=== PATIENT | female | born 1985 | race African-American/Black ===

== ENCOUNTER 2017-04-10 16:17 | Emergency (ER) | payer OTHER | END 2017-04-10 17:05 | disposition home or self-care (01) | LOC: ER 16:17 | DX: J06.9 Acute upper respiratory infection, unspecified (principal); E11.9 Type 2 diabetes mellitus without complications | CPT/HCPCS: 99283 ==

== ENCOUNTER 2017-06-07 15:27 | Emergency (ER) | payer OTHER ==
[2017-06-07 15:50] LABS: URINE HCG POC HCG NEGATIVE (Negative)
[2017-06-07 15:55] LABS: POC GLUCOSE 446 mg/dL (70-99)
[2017-06-07 16:18] LABS: BILIRUBIN,URINE NEGATIVE (NEG); CLARITY,URINE CLEAR; GLUCOSE,URINE >=1000 mg/dL (NEG); NITRITE,URINE NEGATIVE (NEG); PROTEIN,URINE NEGATIVE (NEG-TRACE); UROBILINOGEN,URINE 0.2 mg/dL (0.2 mg/dL)
[2017-06-07 16:25] LABS: BACTERIA,URINE 0 /HPF (0-FEW); COLOR,URINE STRAW; RBC,URINE 0 /HPF (0-2); SQUAMOUS EPITHELIAL CELL,UR MOD /LPF; YEAST,URINE PRESENT /HPF
[2017-06-07 17:17] LABS: AGAP ISTAT 17 mmol/L (6-14); BUN ISTAT 11 mg/dL (8-26); CHLORIDE ISTAT 99 mmol/L (98-110); CREATININE ISTAT 0.9 mg/dL (0.5-1.4); GLUCOSE ISTAT 413 mg/dL (70-99); HEMATOCRIT ISTAT 45 % (36-40); HEMOGLOBIN ISTAT 15.3 g/dL (12-15); ION CA ISTAT 1.16 mmol/L (1.13-1.32); POTASSIUM ISTAT 4.9 mmol/L (3.5-5.0); SODIUM ISTAT 138 mmol/L (135-145); TOT CO2 ISTAT 28 mmol/L (23-32)
== END 2017-06-07 17:30 | disposition home or self-care (01) ==
LOC: ER 15:27
DX: E11.9 Type 2 diabetes mellitus without complications (principal); E66.9 Obesity, unspecified; Z68.41 Body mass index [BMI] 40.0-44.9, adult; Z79.84 Long term (current) use of oral hypoglycemic drugs
CPT/HCPCS: 36415; 80047; 81001; 81025; 82962; 85014; 85018; 99284

== ENCOUNTER 2017-07-04 18:07 | Observation (INO) | payer OTHER ==
[2017-07-04 18:24] LABS: URINE HCG POC HCG NEGATIVE (Negative)
[2017-07-04] MEDS: IV NORMAL SALINE 1000ML BAG 1,000 ML IV ×5 (18:25→22:20)
[2017-07-04 18:26] LABS: POC GLUCOSE 569 mg/dL (70-99)
[2017-07-04 18:30] LABS: BILIRUBIN,URINE NEGATIVE (NEG); CLARITY,URINE CLEAR; COLOR,URINE YELLOW; GLUCOSE,URINE >=1000 mg/dL (NEG); NITRITE,URINE NEGATIVE (NEG); PROTEIN,URINE NEGATIVE (NEG-TRACE); UROBILINOGEN,URINE 0.2 mg/dL (0.2 mg/dL)
[2017-07-04 18:34] LABS: ADD MAN DIFF? NO
[2017-07-04 18:36] LABS: BASO # 0.1 x10^3/uL (0.0-0.2); BASO % 1 % (0-3); EOS # 0.1 x10^3/uL (0.0-0.7); EOS % 1 % (0-3); HEMATOCRIT 43.5 % (36.0-47.0); HEMOGLOBIN 14.3 g/dL (12.0-15.5); LYMPH # 2.7 x10^3/uL (1.0-4.8); LYMPH % 48 % (24-48); MEAN CORPUSCULAR HEMOGLOBIN 25 pg (25-35); MEAN CORPUSCULAR HGB CONC 33 g/dL (31-37); MEAN CORPUSCULAR VOLUME 77 fL (79-100); MONO # 0.5 x10^3/uL (0.0-1.1); MONO % 8 % (0-9); NEUT # 2.4 x10^3uL (1.8-7.7); NEUT % 42 % (31-73); PLATELET COUNT 303 x10^3/uL (140-400); RED BLOOD COUNT 5.68 x10^6/uL (3.50-5.40); RED CELL DISTRIBUTION WIDTH 14.8 % (11.5-14.5); WHITE BLOOD COUNT 5.6 x10^3/uL (4.0-11.0)
[2017-07-04 18:37] LABS: BACTERIA,URINE 0 /HPF (0-FEW); RBC,URINE 0 /HPF (0-2); SQUAMOUS EPITHELIAL CELL,UR FEW /LPF
[2017-07-04 18:38] LABS: YEAST,URINE PRESENT /HPF
[2017-07-04 18:52] LABS: ALBUMIN 3.9 g/dL (3.4-5.0); ALBUMIN/GLOBULIN RATIO 1.1 (1.0-1.7); ALK PHOS 186 U/L (46-116); ALT (SGPT) 37 U/L (14-59); ANION GAP 10 (6-14); AST (SGOT) 18 U/L (15-37); BLOOD UREA NITROGEN 15 mg/dL (7-20); BUN/CREATININE RATIO 13 (6-20); CALCIUM 9.7 mg/dL (8.5-10.1); CARBON DIOXIDE 26 mmol/L (21-32); CHLORIDE 96 mmol/L (98-107); CREATININE 1.2 mg/dL (0.6-1.0); GFR 64.3; POTASSIUM 4.5 mmol/L (3.5-5.1); SODIUM 132 mmol/L (136-145); TOTAL BILIRUBIN 0.4 mg/dL (0.2-1.0); TOTAL PROTEIN 7.5 g/dL (6.4-8.2)
[2017-07-04 18:55] LABS: GLUCOSE 576 mg/dL (70-99)
[2017-07-04] MEDS: INSULIN REGULAR 100 UNIT/ML 3ML VIAL. IV (19:25)
[2017-07-04 19:59] LABS: POC GLUCOSE 354 mg/dL (70-99)
[2017-07-04] MEDS ORDERED: ACETAMINOPHEN 325 MG TABLET. PO (20:30)
[2017-07-04] MEDS ORDERED: ONDANSETRON PF 4 MG/2 ML VIAL. IV (20:30)
[2017-07-04] MEDS ORDERED: DEXTROSE 50% 25 GM / 50ML DISP.SYRIN. IV (20:30)
[2017-07-04] MEDS: FLUCONAZOLE 100 MG TABLET. PO (21:40)
[2017-07-04] MEDS: amLODIPine BESYLATE 5 MG TABLET PO (21:41)
[2017-07-05 04:13] LABS: ADD MAN DIFF? NO
[2017-07-05 04:16] LABS: BASO % 1 % (0-3); EOS # 0.1 x10^3/uL (0.0-0.7); EOS % 2 % (0-3); HEMATOCRIT 38.6 % (36.0-47.0); HEMOGLOBIN 12.7 g/dL (12.0-15.5); LYMPH # 2.1 x10^3/uL (1.0-4.8); LYMPH % 47 % (24-48); MEAN CORPUSCULAR HEMOGLOBIN 25 pg (25-35); MEAN CORPUSCULAR HGB CONC 33 g/dL (31-37); MEAN CORPUSCULAR VOLUME 77 fL (79-100); MONO # 0.4 x10^3/uL (0.0-1.1); MONO % 10 % (0-9); NEUT # 1.8 x10^3uL (1.8-7.7); NEUT % 41 % (31-73); PLATELET COUNT 244 x10^3/uL (140-400); RED BLOOD COUNT 5.04 x10^6/uL (3.50-5.40); RED CELL DISTRIBUTION WIDTH 15.1 % (11.5-14.5); WHITE BLOOD COUNT 4.4 x10^3/uL (4.0-11.0)
[2017-07-05 05:11] LABS: ALBUMIN 2.9 g/dL (3.4-5.0); ALBUMIN/GLOBULIN RATIO 0.9 (1.0-1.7); ALK PHOS 109 U/L (46-116); ALT (SGPT) 29 U/L (14-59); ANION GAP 9 (6-14); AST (SGOT) 15 U/L (15-37); BLOOD UREA NITROGEN 11 mg/dL (7-20); BUN/CREATININE RATIO 12 (6-20); CALCIUM 8.2 mg/dL (8.5-10.1); CARBON DIOXIDE 25 mmol/L (21-32); CHLORIDE 105 mmol/L (98-107); CREATININE 0.9 mg/dL (0.6-1.0); GFR 89.6; GLUCOSE 372 mg/dL (70-99); POTASSIUM 4.1 mmol/L (3.5-5.1); SODIUM 139 mmol/L (136-145); TOTAL BILIRUBIN 0.6 mg/dL (0.2-1.0); TOTAL PROTEIN 6.1 g/dL (6.4-8.2)
[2017-07-05 07:49] LABS: POC GLUCOSE 354 mg/dL (70-99)
[2017-07-05] MEDS: INSULIN LISPRO 300 UNITS/3 ML INSULN.PEN. SQ ×3 (08:42→17:43)
[2017-07-05 11:16] LABS: POC GLUCOSE 346 mg/dL (70-99)
[2017-07-05] MEDS: ENOXAPARIN 40 MG/0.4 ML SYRINGE. SQ ×2 (12:48→23:37)
[2017-07-05] MEDS: amLODIPine BESYLATE 5 MG TABLET PO (12:48)
[2017-07-05] MEDS: metFORMIN XR 500 MG TAB.ER.24H PO (17:34)
[2017-07-05 17:53] LABS: POC GLUCOSE 272 mg/dL (70-99)
[2017-07-05] MEDS: INSULIN GLARGINE 300 UNITS/3 ML INSULN.PEN. SQ (20:38)
[2017-07-05 20:52] LABS: POC GLUCOSE 333 mg/dL (70-99)
[2017-07-06 02:17] LABS: HEMOGLOBIN A1C 12.6 % (4.8-5.6)
[2017-07-06 06:38] LABS: ADD MAN DIFF? NO
[2017-07-06 06:48] LABS: BASO % 1 % (0-3); EOS # 0.1 x10^3/uL (0.0-0.7); EOS % 1 % (0-3); HEMATOCRIT 39.8 % (36.0-47.0); HEMOGLOBIN 13.1 g/dL (12.0-15.5); LYMPH # 2.1 x10^3/uL (1.0-4.8); LYMPH % 49 % (24-48); MEAN CORPUSCULAR HEMOGLOBIN 25 pg (25-35); MEAN CORPUSCULAR HGB CONC 33 g/dL (31-37); MEAN CORPUSCULAR VOLUME 77 fL (79-100); MONO # 0.4 x10^3/uL (0.0-1.1); MONO % 10 % (0-9); NEUT # 1.6 x10^3uL (1.8-7.7); NEUT % 38 % (31-73); PLATELET COUNT 258 x10^3/uL (140-400); RED CELL DISTRIBUTION WIDTH 14.9 % (11.5-14.5); WHITE BLOOD COUNT 4.3 x10^3/uL (4.0-11.0)
[2017-07-06 07:08] LABS: ALBUMIN 2.9 g/dL (3.4-5.0); ALBUMIN/GLOBULIN RATIO 0.9 (1.0-1.7); ALK PHOS 86 U/L (46-116); ALT (SGPT) 37 U/L (14-59); ANION GAP 9 (6-14); AST (SGOT) 22 U/L (15-37); BLOOD UREA NITROGEN 11 mg/dL (7-20); BUN/CREATININE RATIO 14 (6-20); CALCIUM 8.1 mg/dL (8.5-10.1); CARBON DIOXIDE 25 mmol/L (21-32); CHLORIDE 104 mmol/L (98-107); CREATININE 0.8 mg/dL (0.6-1.0); GFR 102.6; GLUCOSE 277 mg/dL (70-99); POTASSIUM 3.9 mmol/L (3.5-5.1); SODIUM 138 mmol/L (136-145); TOTAL BILIRUBIN 0.6 mg/dL (0.2-1.0); TOTAL PROTEIN 6.3 g/dL (6.4-8.2)
[2017-07-06 07:37] LABS: POC GLUCOSE 255 mg/dL (70-99)
[2017-07-06 08:04] LABS: POC GLUCOSE 299 mg/dL (70-99)
[2017-07-06] MEDS: amLODIPine BESYLATE 5 MG TABLET PO (08:11)
[2017-07-06] MEDS: INSULIN LISPRO 300 UNITS/3 ML INSULN.PEN. SQ (08:13)
== END 2017-07-06 12:43 | disposition home or self-care (01) ==
LOC: ER 18:07 → 5 NORTH 20:16
DX: E11.65 Type 2 diabetes mellitus with hyperglycemia (principal); E87.0 Hyperosmolality and hypernatremia; I10 Essential (primary) hypertension; Z83.3 Family history of diabetes mellitus
CPT/HCPCS: 36415; 80053; 81001; 81025; 82962; 83036; 85025; 96361; 96372; 96374; 99285-25; G0378; G0379; J1650; J1815; J7030

== ENCOUNTER 2017-12-08 16:10 | Emergency (ER) | payer OTHER ==
[~2017-12-08] VITALS: Ht 165.1 cm; Wt 117.9 kg
[~2017-12-08 16:10] MED LIST: CYCL10TA2 PO; HYDR5SUS PO; METF500T16 PO; NAPR500T8 PO
[2017-12-08 16:17] VITALS: BP 149/102
[2017-12-08] MEDS ORDERED: ACET-704 PO (16:34)
[2017-12-08] MEDS ORDERED: NAPR500T8 PO (16:34)
[2017-12-08] MEDS ORDERED: PENI500T PO (16:34)
--- NOTE | 2017-12-08 16:34 | PHYS DOC ---
Past Medical History Past Medical History: Diabetes-Type II Additional Past Medical Histor: obesity, abscess Past Surgical History: No Surgical History Alcohol Use: Occasionally Drug Use: None Adult General Chief Complaint Chief Complaint: DENTAL PROBLEM HPI HPI Patient is a 32 year old female with history of diabetes type 2 who presents today complaining of right upper and lower gum dental pain that has been going on for one week. Patient denies any fever or trismus. Review of Systems Review of Systems Constitutional: Denies fever or chills [] HENT: Reports right upper gum dental pain. Denies nasal congestion or sore throat [] Musculoskeletal: Denies back pain or joint pain [] Integument: Denies rash or skin lesions [] Neurologic: Denies headache, focal weakness or sensory changes [] All other systems were reviewed and found to be within normal limits, except as documented in this note. Allergies Allergies Allergies Coded Allergies Type Severity Reaction Last Updated Verified No Known Drug Allergies 09/25/14 No Physical Exam Physical Exam Constitutional: Well developed, well nourished, no acute distress, non-toxic appearance. [] HENT: Normocephalic, atraumatic, bilateral external ears normal, oropharynx moist, no oral exudates, nose normal. [] Scattered dental carriers. No dental abscess. No gum erythema Skin: Warm, dry, no erythema, no rash. [] Back: No tenderness, no CVA tenderness. [] Extremities: No tenderness, no cyanosis, no clubbing, ROM intact, no edema. [] Neurologic: Alert and oriented X 3, normal motor function, normal sensory function, no focal deficits noted. [] Psychologic: Affect normal, judgement normal, mood normal. [] Current Patient Data Vital Signs Vital Signs Date Time Temp Pulse Resp B/P (MAP) Pulse Ox O2 Delivery O2 Flow Rate FiO2 12/08/17 16:17 98.0 74 18 149/102 (118) 96 Room Air 98.0 EKG EKG [] Radiology/Procedures Radiology/Procedures [] Course & Med Decision Making Course & Med Decision Making Pertinent Labs and Imaging studies reviewed. (See chart for details) Patient has dental caries. Discharged with penicillin for 10 days. Follow-up with the dentist as soon as possible. Dragon Disclaimer Dragon Disclaimer This electronic medical record was generated, in whole or in part, using a voice recognition dictation system. Departure Departure Impression: Primary Impression: Dentalgia Additional Impression: Dental caries Disposition: 01 HOME, SELF-CARE Condition: STABLE Referrals: NO PCP (PCP) Follow-up with a dentist as soon as possible Patient Instructions: Dental Caries Additional Instructions: You were seen for dental pain. We put you on antibiotics, ensure you complete them. Follow-up with the dentist as soon as possible. Scripts Acetaminophen With Codeine (TYLENOL WITH CODEINE #3 TABLET) 1 Each Tablet 1 TAB PO PRN Q6HRS PRN for PAIN, #20 TAB Prov: DIRK FERNANDEZ APRN 12/08/17 Naproxen (NAPROXEN) 500 Mg Tablet.dr 1 TAB PO BID, #60 TAB 0 Refills Prov: DIRK FERNANDEZ APRN 12/08/17 Penicillin V Potassium (PENICILLIN V POTASSIUM) 500 Mg Tablet 1 TAB PO BID, #20 TAB Prov: DIRK FERNANDEZ APRN 12/08/17 Problem Qualifiers DIRK FERNANDEZ APRN Dec 08, 2017 16:34
== END 2017-12-08 16:36 | disposition home or self-care (01) ==
LOC: ER 16:10
DX: K08.89 Other specified disorders of teeth and supporting structures (principal); K02.9 Dental caries, unspecified; E11.9 Type 2 diabetes mellitus without complications; E66.9 Obesity, unspecified; Z68.41 Body mass index [BMI] 40.0-44.9, adult
CPT/HCPCS: 99283

== ENCOUNTER 2018-05-05 12:59 | Emergency (ER) | payer OTHER ==
[~2018-05-05] VITALS: Ht 165.1 cm; Wt 117.9 kg
[~2018-05-05 12:59] MED LIST changes: +ACET-704 PO; +PENI500T PO
[2018-05-05 13:17] LABS: BILIRUBIN,URINE NEGATIVE (NEG); CLARITY,URINE CLEAR; COLOR,URINE YELLOW; NITRITE,URINE NEGATIVE (NEG); PROTEIN,URINE NEGATIVE (NEG-TRACE); UROBILINOGEN,URINE 0.2 mg/dL (0.2 mg/dL)
--- NOTE | 2018-05-05 13:23 | PHYS DOC ---
Past Medical History Past Medical History: Diabetes-Type II Additional Past Medical Histor: obesity, abscess (DIRK FERNANDEZ APRN) Past Surgical History: No Surgical History (DIRK FERNANDEZ APRN) Alcohol Use: Occasionally Drug Use: None (DIRK FERNANDEZ APRN) Adult General Chief Complaint Chief Complaint: PAIN ON URINATION [facility] HPI Patient is a 32 year old female with history of diabetes type 2 who presents to the ED today complaining of urgency frequency dysuria for 3 days. Patient denies any fever, abdominal pain, nausea or vomiting. She states she has history of diabetes type 2 and has been out of her medications for a while. She states she got samples from her doctor's office 2 weeks ago and started retaking most of her insulin as well as oral medicines. (DIRK FERNANDEZ APRN) Review of Systems Review of Systems Constitutional: Denies fever or chills [] Eyes: Denies change in visual acuity, redness, or eye pain [] HENT: Denies nasal congestion or sore throat [] Respiratory: Denies cough or shortness of breath [] Cardiovascular: No additional information not addressed in HPI [] GI: Denies abdominal pain, nausea, vomiting, bloody stools or diarrhea [] : Reports urgency, frequency, dysuria, denies hematuria [] Musculoskeletal: Denies back pain or joint pain [] Integument: Denies rash or skin lesions [] Neurologic: Denies headache, focal weakness or sensory changes [] All other systems were reviewed and found to be within normal limits, except as documented in this note. (DIRK FERNANDEZ APRN) Current Medications Current Medications Current Medications Medications (Trade) Dose Ordered Sig/Genevieve Start Time Stop Time Status Last Admin Dose Admin Insulin Human Regular (HumuLIN R VIAL) 10 unit 1X ONCE 05/05/18 15:45 05/05/18 15:50 DC 05/05/18 16:54 10 UNIT Sodium Chloride 1,000 ml @ 1,000 mls/hr 1X ONCE 05/05/18 15:45 05/05/18 16:44 DC 05/05/18 16:49 1,000 MLS/HR (MOISÉS DELA CRUZ MD) Allergies Allergies Allergies Coded Allergies Type Severity Reaction Last Updated Verified No Known Drug Allergies 09/25/14 No (MOISÉS DELA CRUZ MD) Physical Exam Physical Exam Constitutional: Well developed, well nourished, no acute distress, non-toxic appearance. [] HENT: Normocephalic, atraumatic, bilateral external ears normal, oropharynx moist, no oral exudates, nose normal. [] Eyes: PERRLA, EOMI, conjunctiva normal, no discharge. [] Neck: Normal range of motion, no tenderness, supple, no stridor. [] Cardiovascular:Heart rate regular rhythm, no murmur [] Lungs & Thorax: Bilateral breath sounds clear to auscultation [] Abdomen: Bowel sounds normal, soft, no tenderness, no masses, no pulsatile masses. [] Skin: Warm, dry, no erythema, no rash. [] Back: No tenderness, no CVA tenderness. [] Extremities: No tenderness, no cyanosis, no clubbing, ROM intact, no edema. [] Neurologic: Alert and oriented X 3, normal motor function, normal sensory function, no focal deficits noted. [] Psychologic: Affect normal, judgement normal, mood normal. [] (DIRK FERNANDEZ APRN) Current Patient Data Vital Signs Vital Signs Date Time Temp Pulse Resp B/P (MAP) Pulse Ox O2 Delivery O2 Flow Rate FiO2 05/05/18 19:32 75 16 152/88 (109) 98 Room Air 05/05/18 13:00 97.7 97.7 (MOISÉS DELA CRUZ MD) Lab Values Laboratory Tests Test 05/05/18 13:05 05/05/18 13:09 05/05/18 14:20 05/05/18 16:17 Urine Collection Type Unknown Urine Color Yellow Urine Clarity Clear Urine pH 5.0 Urine Specific [place] >=1.030 Urine Protein Negative mg/dL (NEG-TRACE) Urine Glucose (UA) >=1000 mg/dL (NEG) Urine Ketones (Stick) 15 mg/dL (NEG) Urine Blood Negative (NEG) Urine Nitrite Negative (NEG) Urine Bilirubin Negative (NEG) Urine Urobilinogen Dipstick 0.2 mg/dL (0.2 mg/dL) Urine Leukocyte Esterase Negative (NEG) Urine RBC 0 /HPF (0-2) Urine WBC 5-10 /HPF (0-4) Urine Squamous Epithelial Cells Few /LPF Urine Bacteria 0 /HPF (0-FEW) POC Urine HCG, Qualitative Hcg negative (Negative) White Blood Count 5.5 x10^3/uL (4.0-11.0) Red Blood Count 5.51 x10^6/uL (3.50-5.40) H Hemoglobin 13.9 g/dL (12.0-15.5) Hematocrit 43.2 % (36.0-47.0) Mean Corpuscular Volume 78 fL (79-100) L Mean Corpuscular Hemoglobin 25 pg (25-35) Mean Corpuscular Hemoglobin Concent 32 g/dL (31-37) Red Cell Distribution Width 14.1 % (11.5-14.5) Platelet Count 239 x10^3/uL (140-400) Neutrophils (%) (Auto) 62 % (31-73) Lymphocytes (%) (Auto) 28 % (24-48) Monocytes (%) (Auto) 9 % (0-9) Eosinophils (%) (Auto) 1 % (0-3) Basophils (%) (Auto) 1 % (0-3) Neutrophils # (Auto) 3.4 x10^3uL (1.8-7.7) Lymphocytes # (Auto) 1.5 x10^3/uL (1.0-4.8) Monocytes # (Auto) 0.5 x10^3/uL (0.0-1.1) Eosinophils # (Auto) 0.0 x10^3/uL (0.0-0.7) Basophils # (Auto) 0.0 x10^3/uL (0.0-0.2) Sodium Level 133 mmol/L (136-145) L Potassium Level 4.5 mmol/L (3.5-5.1) Chloride Level 96 mmol/L (98-107) L Carbon Dioxide Level 22 mmol/L (21-32) Anion Gap 15 (6-14) H Blood Urea Nitrogen 17 mg/dL (7-20) Creatinine 1.0 mg/dL (0.6-1.0) Estimated GFR (Cockcroft-Gault) 78.8 BUN/Creatinine Ratio 17 (6-20) Glucose Level 599 mg/dL (70-99) *H Calcium Level 8.9 mg/dL (8.5-10.1) Total Bilirubin 0.4 mg/dL (0.2-1.0) Aspartate Amino Transferase (AST) 11 U/L (15-37) L Alanine Aminotransferase (ALT) 27 U/L (14-59) Alkaline Phosphatase 172 U/L (46-116) H Total Protein 7.4 g/dL (6.4-8.2) Albumin 3.6 g/dL (3.4-5.0) Albumin/Globulin Ratio 0.9 (1.0-1.7) L Lipase 105 U/L (73-393) Glucose (Fingerstick) 352 mg/dL (70-99) H Test 05/05/18 18:10 Sodium Level 140 mmol/L (136-145) Potassium Level 3.9 mmol/L (3.5-5.1) Chloride Level 105 mmol/L (98-107) Carbon Dioxide Level 27 mmol/L (21-32) Anion Gap 8 (6-14) Blood Urea Nitrogen 13 mg/dL (7-20) Creatinine 0.9 mg/dL (0.6-1.0) Estimated GFR (Cockcroft-Gault) 89.0 Glucose Level 280 mg/dL (70-99) H Calcium Level 7.9 mg/dL (8.5-10.1) L Laboratory Tests 05/05/18 14:20 Laboratory Tests 05/05/18 14:20 05/05/18 18:10 Microbiology 05/05/18 Urine Culture - Final, Complete 05/05/18 Urine Culture Result 1 (HUNG) - Final, Complete (MOISÉS DELA CRUZ MD) EKG EKG [] (DIRK FERNANDEZ APRN) Radiology/Procedures Radiology/Procedures [] (DIRK FERNANDEZ APRN) Course & Med Decision Making Course & Med Decision Making Pertinent Labs and Imaging studies reviewed. (See chart for details) This is a 32-year-old female patient presenting to the ED today with the UTI symptoms. Negative urine hCG. Urine analysis is negative for infection, glucose over 1000. Fingerstick was done in the ED which read high. CBC with with no acute findings, CMP with glucose of 559, sodium 133, anion gap 15. urine with 15 ketones. Patient was given 3 L of IV fluid, 10 units of insulin. BMP with glucose of 280, anion gap is normal. Sodium is normal. Patient was discharged to home. She states she has samples of insulin for home use and does not need anymore. She was encouraged to make sure she is using her insulin. (DIRK FERNANDEZ APRN) Course & Med Decision Making Staff Physician Addendum: I was working in the ER during the course of this patient's visit. I was available for consultation as needed, but I was not directly involved in the care of this patient. (MOISÉS DELA CRUZ MD) Dragon Disclaimer Dragon Disclaimer This electronic medical record was generated, in whole or in part, using a voice recognition dictation system. (DIRK FERNANDEZ APRN) Departure Departure Impression: Primary Impression: Hyperglycemia due to type 2 diabetes mellitus Disposition: HOME, SELF-CARE Condition: STABLE Referrals: NO PCP (PCP) Nikky NATARAJAN MD Follow-up next week Patient Instructions: Hyperglycemia, [id number] Additional Instructions: You were evaluated in the emergency and noted to be hyperglycemic. Ensure you are using your insulin. Follow-up with your doctor on Monday next week. Problem Qualifiers Primary Impression: Hyperglycemia due to type 2 diabetes mellitus Diabetes mellitus halfway insulin use: with circus roustabout use Qualified Codes: E11.65 - Type 2 diabetes mellitus with hyperglycemia; Z79.4 - compounder ( current) use of insulin DIRK FERNANDEZ APRN May 05, 2018 13:23 MOISÉS DELA CRUZ MD May 09, 2018 05:49
[2018-05-05 13:46] LABS: BACTERIA,URINE 0 /HPF (0-FEW); RBC,URINE 0 /HPF (0-2); SQUAMOUS EPITHELIAL CELL,UR FEW /LPF
[2018-05-05] MEDS ORDERED: IV NORMAL SALINE 1000ML BAG 1,000 ML IV ONE ×3 (14:15→15:45)
[2018-05-05 14:34] LABS: BASO % 1 % (0-3); EOS % 1 % (0-3); HEMATOCRIT 43.2 % (36.0-47.0); HEMOGLOBIN 13.9 g/dL (12.0-15.5); LYMPH # 1.5 x10^3/uL (1.0-4.8); LYMPH % 28 % (24-48); MEAN CORPUSCULAR HEMOGLOBIN 25 pg (25-35); MEAN CORPUSCULAR HGB CONC 32 g/dL (31-37); MEAN CORPUSCULAR VOLUME 78 fL (79-100); MONO # 0.5 x10^3/uL (0.0-1.1); MONO % 9 % (0-9); NEUT # 3.4 x10^3uL (1.8-7.7); NEUT % 62 % (31-73); PLATELET COUNT 239 x10^3/uL (140-400); RED BLOOD COUNT 5.51 x10^6/uL (3.50-5.40); RED CELL DISTRIBUTION WIDTH 14.1 % (11.5-14.5); WHITE BLOOD COUNT 5.5 x10^3/uL (4.0-11.0)
[2018-05-05 14:48] LABS: ALBUMIN 3.6 g/dL (3.4-5.0); ALBUMIN/GLOBULIN RATIO 0.9 (1.0-1.7); CALCIUM 8.9 mg/dL (8.5-10.1); GFR 78.8; POTASSIUM 4.5 mmol/L (3.5-5.1); TOTAL BILIRUBIN 0.4 mg/dL (0.2-1.0); TOTAL PROTEIN 7.4 g/dL (6.4-8.2)
[2018-05-05] MEDS ORDERED: INSULIN REGULAR 100 UNIT/ML 3ML VIAL. IV ONE (15:45)
[2018-05-05 18:29] LABS: CALCIUM 7.9 mg/dL (8.5-10.1); CREATININE 0.9 mg/dL (0.6-1.0); POTASSIUM 3.9 mmol/L (3.5-5.1)
[2018-05-05 19:32] VITALS: BP 152/88
== END 2018-05-05 19:29 | disposition home or self-care (01) ==
LOC: ER 12:59
DX: E11.65 Type 2 diabetes mellitus with hyperglycemia (principal); E66.2 Morbid (severe) obesity with alveolar hypoventilation; Z68.41 Body mass index [BMI] 40.0-44.9, adult
CPT/HCPCS: 36415; 80048; 80053; 81001; 81025; 82962; 83690; 85025; 87086; 96361; 96374; 99283; J1815; J7030

== ENCOUNTER 2018-06-12 12:03 | Emergency (ER) | payer OTHER ==
[~2018-06-12] VITALS: Ht 165.1 cm; Wt 117.9 kg
[2018-06-12 12:18] VITALS: BP 140/83
[2018-06-12] MEDS ORDERED: SULF1TAB24 PO (13:08)
--- NOTE | 2018-06-12 13:08 | PHYS DOC ---
Past Medical History Past Medical History: Diabetes-Type II Additional Past Medical Histor: obesity, abscess (MONIQUE CERVANTES APRN) Past Surgical History: No Surgical History (MONIQUE CERVANTES APRN) Alcohol Use: Occasionally Drug Use: None (MONIQUE CERVANTES APRN) Adult General Chief Complaint Chief Complaint: ABSCESS HPI HPI 32 y/o female presents to ER for c/o sore on rt musa which she noticed 2 days ago. She reports area has been sore on palp. and this morning started to drain. She denies fever, nausea or vomiting, or numbness and tingling. She reports she has been ambulatory denying increased pain with walking. She denies injury to area where the sore is located. (MONIQUE CERVANTES APRN) Review of Systems Review of Systems Constitutional: Denies fever or chills [] Respiratory: Denies cough or shortness of breath [] Cardiovascular: No additional information not addressed in HPI [] GI: Denies N/V : Denies dysuria or hematuria [] Musculoskeletal: Reports rt musa pain at sore site Integument: Reports sore on rt musa Neurologic: Denies headache, focal weakness or sensory changes [] Endocrine: Denies polyuria or polydipsia [] All other systems were reviewed and found to be within normal limits, except as documented in this note. (MONIQUE CERVANTES APRN) Allergies Allergies Allergies Coded Allergies Type Severity Reaction Last Updated Verified No Known Drug Allergies 09/25/14 No (QUINN MARTINEZ MD) Physical Exam Physical Exam Constitutional: Well developed, well nourished, no acute distress, non-toxic appearance. [] HENT: Normocephalic, atraumatic, oropharynx moist Eyes: Pupils equal, conjunctiva normal, no discharge. [] Neck: Normal range of motion, supple Cardiovascular: Heart rate regular rhythm, no murmur [] Lungs & Thorax: Resp. equal/nonlabored Skin: Warm, dry Extremities: No cyanosis, no clubbing, ROM intact, no edema. Abscess on rt mid musa- serosanguineous drainage on exam. Induration around sore without area of fluctuation. 2+ dorsalis pedis rt LE. No calf tenderness- symmetric calf size Neurologic: Alert and oriented X 3, normal motor function, normal sensory function, no focal deficits noted. [] Psychologic: Affect normal, judgement normal, mood normal. [] (MONIQUE CERVANTES APRN) Current Patient Data Vital Signs Vital Signs Date Time Temp Pulse Resp B/P (MAP) Pulse Ox O2 Delivery O2 Flow Rate FiO2 06/12/18 12:18 97.9 80 16 140/83 (102) 97 Room Air 97.9 (QUINN MARTINEZ MD) EKG EKG [] (MONIQUE CERVANTES APRN) Radiology/Procedures Radiology/Procedures [] (MONIQUE CERVANTES APRN) Course & Med Decision Making Course & Med Decision Making Pt was evaluated in the ER for abscess to right lower musa. Abscess was actively draining upon her arrival and exam. Patient was PMS intact in right lower extremity and was afebrile. Patient was having no difficulty walking. Patient is diabetic and she reports her blood sugar today was 240s. She reports she has been checking ketones and it was negative today. She reports she has appointment already scheduled on with her primary care physician for routine checkup. She reports she will discuss abscess with her primary care physician and have reevaluation at that time. Patient will be provided with prescription for Bactrim and education provided on signs and symptoms to return to ER for. Patient strongly encouraged to keep appointment with her primary care physician on and also discuss her blood sugars. Patient was nontoxic in appearance and in no visible distress. Patient was noted to have steady unassisted gait. Discharge instructions were discussed. I [] (MONIQUE CERVANTES APRN) Course & Med Decision Making I was available for consultation regarding this patient's care. I did not see or examine the pt unless otherwise specified. (QUINN MARTINEZ MD) Dragon Disclaimer Dragon Disclaimer This electronic medical record was generated, in whole or in part, using a voice recognition dictation system. (MONIQUE CERVANTES APRN) Departure Departure Impression: Primary Impression: Abscess Disposition: 01 HOME, SELF-CARE Condition: STABLE Referrals: Nikky NATARAJAN MD (PCP) Patient Instructions: Abscess Additional Instructions: As discussed monitor wound for worsening symptoms. Take antibiotic as pr escribed. You can apply triple antibiotic ointment to site as directed on container. Keep your scheduled appointment on for reevaluation of the wound. As discussed continue monitoring your blood sugar and discuss your ER visit with your primary doctor. Scripts Sulfamethoxazole/Trimethoprim (BACTRIM DS TABLET) 1 Each Tablet 1 TAB PO BID, #14 TAB 0 Refills Prov: MONIQUE CERVANTES APRN 06/12/18 MONIQUE CERVANTES APRN Jun 12, 2018 13:08 QUINN MARTINEZ MD Jun 12, 2018 17:33
== END 2018-06-12 13:47 | disposition home or self-care (01) ==
LOC: ER 12:03
DX: L02.415 Cutaneous abscess of right lower limb (principal); E11.9 Type 2 diabetes mellitus without complications; E66.9 Obesity, unspecified; Z68.41 Body mass index [BMI] 40.0-44.9, adult
CPT/HCPCS: 99283

== ENCOUNTER 2019-01-04 12:38 | Emergency (ER) | payer OTHER ==
[~2019-01-04] VITALS: Ht 165.1 cm; Wt 117.9 kg
[2019-01-04 13:03] VITALS: BP 158/97
[2019-01-04] MEDS ORDERED: CYCL10TA2 PO (13:22)
--- NOTE | 2019-01-04 13:22 | PHYS DOC ---
Past Medical History Past Medical History: Diabetes-Type II Additional Past Medical Histor: obesity, abscess Past Surgical History: No Surgical History Alcohol Use: Occasionally Drug Use: None Adult General Chief Complaint Chief Complaint: BACK PAIN OR INJURY HPI HPI Patient is a 33 year old AA who presents to the emergency department with complaints of pain in her lateral left low back for the last 3 days. She states that the pain began after she had to hold a heavy door of work for a few minutes 3 days ago. Patient denies any dysuria, hematuria, abdominal pain, irregular vaginal discharge, or vaginal bleeding. She denies any nausea, vomiting, diarrhea, fever, shortness of breath, cough, or wheezing. Patient also denies any numbness, tingling, or weakness. She states that the pain is worse with movement, she denies any saddle anesthesia, loss of bowel or bladder control, or radiation of pain into her lower extremities. She denies any recent injury or fall. Currently she rates her discomfort a 5 out of 10 on the pain scale, there are no alleviating factors. Patient states that her last menstrual cycle was on November 19, 2018 her primary care doctor sent off lab work to determine wheth er or not patient is after a negative urine test at his office yesterday. All other ROS is neg unless otherwise noted in HPI. Review of Systems Review of Systems See Above Allergies Allergies Allergies Coded Allergies Type Severity Reaction Last Updated Verified No Known Drug Allergies 09/25/14 No Physical Exam Physical Exam See Above Constitutional: Well developed, well nourished, no acute distress, non-toxic appearance, obese. [] HENT: Normocephalic, atraumatic, bilateral external ears normal, nose normal. [] Eyes: PERRLA, EOMI, conjunctiva normal, no discharge. [] Neck: Normal range of motion, no stridor. [] Cardiovascular:Heart rate regular rhythm, no murmur [] Lungs & Thorax: Bilateral breath sounds clear to auscultation [] Abdomen: soft, no tenderness Skin: Warm, dry, no erythema, no rash. [] Back: No bony tenderness, no CVA tenderness, lateral Left lumbar paraspinal TTP Extremities: No cyanosis, ROM intact, no edema. [] Neurologic: Alert and oriented X 3, no focal deficits noted. [] Psychologic: Affect normal, judgement normal, mood normal. [] Current Patient Data Vital Signs Vital Signs Date Time Temp Pulse Resp B/P (MAP) Pulse Ox O2 Delivery O2 Flow Rate FiO2 01/04/19 13:03 97.5 81 16 158/97 (117) 96 Room Air 97.5 EKG EKG [] Radiology/Procedures Radiology/Procedures [] Course & Med Decision Making Course & Med Decision Making Pertinent Labs and Imaging studies reviewed. (See chart for details) [] Dragon Disclaimer Dragon Disclaimer This electronic medical record was generated, in whole or in part, using a voice recognition dictation system. Departure Departure Impression: Primary Impression: Acute lumbar back pain Additional Impression: Lumbar back sprain Disposition: HOME, SELF-CARE Condition: STABLE Referrals: Nikky NATARAJAN MD (PCP) Patient Instructions: Low Back Strain with Rehab[facility] Additional Instructions: Fill the prescription and use it as directed you may also take Tylenol as needed for pain. Recommend application of heat or ice to sore areas as needed for comfort. Activity as tolerated. Follow-up with your primary care doctor next week, return to the ER if symptoms worsen. Scripts Cyclobenzaprine Hcl (CYCLOBENZAPRINE HCL) 10 Mg Tablet 1 TAB PO TID PRN for MUSCLE PAIN for 10 Days, #30 TAB 0 Refills Prov: HILDA KIM WORLD DESIGNER 01/04/19 Problem Qualifiers Primary Impression: Acute lumbar back pain Back pain laterality: left Sciatica presence: without sciatica Qualified Codes: M54.5 - Low back pain Additional Impression: Lumbar back sprain Encounter type: initial encounter Qualified Codes: S33.5XXA - Sprain of ligaments of lumbar spine, initial encounter HILDA KIM WORLD DESIGNER Jan 04, 2019 13:22
== END 2019-01-04 13:33 | disposition home or self-care (01) ==
LOC: ER 12:38
DX: S33.5XXA Sprain of ligaments of lumbar spine, initial encounter (principal); E11.9 Type 2 diabetes mellitus without complications; E66.9 Obesity, unspecified; Z68.41 Body mass index [BMI] 40.0-44.9, adult; X50.0XXA Overexertion from strenuous movement or load, initial encounter; Y93.89 Activity, other specified; Y92.69 Other specified industrial and construction area as the place of occurrence of the external cause; Y99.0 Civilian activity done for income or pay
CPT/HCPCS: 99283

== ENCOUNTER → 2019-01-04 | Outpatient (CLI) | payer OTHER ==
[~2019-01-04] MED LIST changes: +SULF1TAB24 PO
--- NOTE | 2019-01-04 12:55 | EKG ---
[facility] [address] [place] [address] Test Date: 2019-01-04 Test Time: 12:30:03 Pat Name: ROBERT ADAMSON Department: Room: Gender: F Blind Teacher: : 1985 Requested By: JOHN FITZPATRICK Order Number: [id number] Reading MD: Measurements Intervals [place] Rate: 63 P: 0 VT: 146 QRS: -13 QRSD: 104 T: -3 QT: 400 QTc: 412 Interpretive Statements SINUS RHYTHM LEFTWARD AXIS CONSIDER LEFT VENTRICULAR HYPERTROPHY POSSIBLY ABNORMAL ECG RI6.01 Unconfirmed report No previous ECG available for comparison
== END ==
LOC: EKG 12:09
PROVIDERS: ATTEND Obstetrics & Gynecology
DX: Z31.69 Encounter for other general counseling and advice on procreation (principal); Z79.4 Long term (current) use of insulin; E11.9 Type 2 diabetes mellitus without complications; I10 Essential (primary) hypertension
CPT/HCPCS: 93005

== ENCOUNTER 2019-08-03 12:58 | Emergency (ER) | payer OTHER ==
[~2019-08-03] VITALS: Ht 167.6 cm; Wt 115.1 kg
[2019-08-03 13:22] LABS: BILIRUBIN,URINE NEGATIVE (NEG); CLARITY,URINE CLEAR; COLOR,URINE YELLOW; NITRITE,URINE NEGATIVE (NEG); PROTEIN,URINE NEGATIVE (NEG-TRACE); UROBILINOGEN,URINE 0.2 mg/dL (0.2 mg/dL)
[2019-08-03 13:38] LABS: BACTERIA,URINE FEW /HPF (0-FEW); RBC,URINE 0 /HPF (0-2); SQUAMOUS EPITHELIAL CELL,UR MOD /LPF; WBC,URINE OCC /HPF (0-4)
--- NOTE | 2019-08-03 15:37 | RAD ---
Examination: OB <14 WKS W/TV History: Reason: PELVIC PAIN, / Spl. Instructions: / History: Comparison/Correlation: None Findings: OB ultrasound was performed with transabdominal and transvaginal technique. Transvaginal technique was utilized to better assess the adnexal structures. Uterus is 4 cm x 6 cm x 4.3 center. Cervical length is 3.3 cm. Intrauterine gestational sac is present. Yolk sac is seen. Mean sac diameter of 0.7 minutes and are corresponds to 5 weeks 4 days. EDC by ultrasound is 03/31/2020. Myometrium is normal. No subchorionic hemorrhage. Right ovary measures 3.4 cm x 3 cm x 1.8 cm. Left ovary measures 2.4 cm x 1.8 cm x 1.7 cm. No adnexal masses or pelvic free fluid. Impression: Intrauterine gestational sac is present with mean diameter corresponding to 5 weeks 4 days gestation. No yolk sac seen and no pole identified. This may relate to early stage of intrauterine gestation. Consider interval follow-up serial beta hCG and follow-up ultrasound examination if ectopic gestation is a concern. Electronically signed by: Amari De La Garza MD (08/03/2019 3:34 PM) [id number]
--- NOTE | 2019-08-03 15:49 | PHYS DOC ---
Past Medical History Past Medical History: Diabetes-Type II Additional Past Medical Histor: obesity, abscess Past Surgical History: No Surgical History Smoking Status: Never Smoker Alcohol Use: Rarely Drug Use: None General Adult EDM: Chief Complaint: ABDOMINAL PAIN IN HPI: HPI: Patient is a 33 year old AA female who presents to the emergency department with complaints of lower abdominal pain and a positive home test. Patient states her last menstrual period was on June 122019. She states this is her first , she is not sure what her due date is yet. Patient states after her positive test she was able to schedule an appointment with her TOBACCO DRIER OPERATOR for September 02. Patient reports concern because of the lower abdominal pain. She denies any vaginal bleeding, irregular vaginal discharge, vaginal odor, dysuria, hematuria, nausea, vomiting, diarrhea, or back pain. Patient also denies any fever, cough, shortness of breath, sore throat, ear pain, or headache. She currently denies any pain however she states while she was in the ER waiting room she did have a pressure in her pelvis that she rated a 6 out of 10 on the pain scale. She denies any exacerbating or alleviating factors. Review of Systems: Review of Systems: Constitutional: Denies fever or chills. [] Eyes: Denies change in visual acuity. [] HENT: Denies nasal congestion or sore throat. [] Respiratory: Denies cough or shortness of breath. [] Cardiovascular: Denies chest pain or edema. [] GI: See HPI : Denies dysuria; see HPI. [] Musculoskeletal: Denies back pain or joint pain. [] Integument: Denies rash. [] Neurologic: Denies headache, focal weakness or sensory changes. [] Endocrine: Denies polyuria or polydipsia. [] Lymphatic: Denies swollen glands. [] Psychiatric: Denies depression or anxiety. [] Heart Score: Risk Factors: Risk Factors: DM, Current or recent (<one month) smoker, HTN, HLP, family history of CAD, obesity. Risk Scores: Score 0 - 3: 2.5% MACE over next 6 weeks - Discharge Home Score 4 - 6: 20.3% MACE over next 6 weeks - Admit for Clinical Observation Score 7 - 10: 72.7% MACE over next 6 weeks - Early Invasive Strategies Allergies: Allergies: Allergies Coded Allergies Type Severity Reaction Last Updated Verified No Known Drug Allergies 09/25/14 No Physical Exam: PE: Constitutional: Well developed, well nourished, no acute distress, non-toxic appearance, morbidly obese. [] HENT: Normocephalic, atraumatic, bilateral external ears normal, nose normal. [] Eyes: PERRLA, EOMI, conjunctiva normal, no discharge. [] Neck: Normal range of motion, no stridor. [] Cardiovascular:Heart rate regular rhythm Lungs & Thorax: Respirations even and unlabored, no retractions, no respiratory distress Abdomen: soft, no tenderness Back: No CVA tenderness Skin: Warm, dry, no erythema, no rash. [] Extremities: No cyanosis, ROM intact, no edema. [] Neurologic: Alert and oriented X 3, no focal deficits noted. [] Psychologic: Affect normal, judgement normal, mood normal. [] Current Patient Data: Labs: Laboratory Tests Test 08/03/19 13:09 08/03/19 13:11 08/03/19 14:10 Urine Collection Type Unknown Urine Color Yellow Urine Clarity Clear Urine pH 5.0 (<5.0-8.0) Urine Specific [place] >=1.030 (1.000-1.030) Urine Protein Negative mg/dL (NEG-TRACE) Urine Glucose (UA) >=1000 mg/dL (NEG) Urine Ketones (Stick) Trace mg/dL (NEG) Urine Blood Negative (NEG) Urine Nitrite Negative (NEG) Urine Bilirubin Negative (NEG) Urine Urobilinogen Dipstick 0.2 mg/dL (0.2 mg/dL) Urine Leukocyte Esterase Negative (NEG) Urine RBC 0 /HPF (0-2) Urine WBC Occ /HPF (0-4) Urine Squamous Epithelial Cells Mod /LPF Urine Bacteria Few /HPF (0-FEW) POC Urine HCG, Qualitative Hcg positive (Negative) Maternal Serum HCG Beta Subunit 3141 mIU/mL (0-5) H Vital Signs: Vital Signs Date Time Temp Pulse Resp B/P (MAP) Pulse Ox O2 Delivery O2 Flow Rate FiO2 08/03/19 13:20 97.7 93 18 191/101 (131) 99 Room Air 97.7 EKG: EKG: [] Radiology/Procedures: Radiology/Procedures: PROCEDURE: OB <14 WKS W/TV Examination: OB <14 WKS W/TV History: Reason: PELVIC PAIN, / Spl. Instructions: / History: Comparison/Correlation: None Findings: OB ultrasound was performed with transabdominal and transvaginal technique. Transvaginal technique was utilized to better assess the adnexal structures. Uterus is 4 cm x 6 cm x 4.3 center. Cervical length is 3.3 cm. Intrauterine gestational sac is present. Yolk sac is seen. Mean sac diameter of 0.7 minutes and are corresponds to 5 weeks 4 days. EDC by ultrasound is 03/31/2020. Myometrium is normal. No subchorionic hemorrhage. Right ovary measures 3.4 cm x 3 cm x 1.8 cm. Left ovary measures 2.4 cm x 1.8 cm x 1.7 cm. No adnexal masses or pelvic free fluid. Impression: Intrauterine gestational sac is present with mean diameter corresponding to 5 weeks 4 days gestation. No yolk sac seen and no pole identified. This may relate to early stage of intrauterine gestation. Consider interval follow-up serial beta hCG and follow-up ultrasound examination if ectopic gestation is a concern.[] Course & Med Decision Making: Course & Med Decision Making Pertinent Labs and Imaging studies reviewed. (See chart for details) 33-year-old female who presented to the emergency room with complaints of abdominal pain during . Work-up included a beta-hCG level and a first trimester obstetric ultrasound. According to the ultrasound patient is measuring 5 weeks 4 days and the EDC is 03/31/2020 HCG level today was 3141. I recommend that the patient follows up with her OBGyn in 1-2 days to have hCG level rechecked. Pelvic rest until follow up. Return to the ER if symptoms worsen. Patient verbalized an understanding of home care, medications, follow-up, and return to ED instructions and was in agreement with the plan of care. [] Dragon Disclaimer: Dragon Disclaimer: This electronic medical record was generated, in whole or in part, using a voice recognition dictation system. Departure Departure Impression: Primary Impression: Qualified Codes: Z3A.01 - Less than 8 weeks gestation of Additional Impression: Abdominal pain during in first trimester Disposition: HOME, SELF-CARE Condition: STABLE Referrals: Nikky NATARAJAN MD (PCP) Patient Instructions: ABCs of , Abdominal Pain During , [id number] Additional Instructions: According to the ultrasound today you are measuring 5 weeks 4 days. Your due date according to ultrasound is 03/31/2020 Your HCG level today was 3141. I recommend that you follow up with your OBGyn in 1-2 days to have this level rechecked. Pelvic rest until follow up. Return to the ER if symptoms worsen. . Justicifation of Admission Dx: Justifications for Admission: Justification of Admission Dx: N/A HILDA KIM AUTO CLEANER Aug 03, 2019 15:49
[2019-08-03 16:20] VITALS: BP 128/85
== END 2019-08-03 16:20 | disposition home or self-care (01) ==
LOC: ER 12:58
DX: O26.891 Other specified pregnancy related conditions, first trimester (principal); R10.30 Lower abdominal pain, unspecified; O24.911 Unspecified diabetes mellitus in pregnancy, first trimester; E66.9 Obesity, unspecified; Z68.41 Body mass index [BMI] 40.0-44.9, adult; Z3A.01 Less than 8 weeks gestation of pregnancy
CPT/HCPCS: 36415; 76801; 76817; 81001; 81025; 84702; 99284-25

== ENCOUNTER 2019-08-24 00:28 | Emergency (ER) | payer OTHER ==
[~2019-08-24] VITALS: Ht 165.1 cm; Wt 120.0 kg
[2019-08-24 01:41] VITALS: BP 141/85
[2019-08-24 02:15] LABS: BILIRUBIN,URINE NEGATIVE (NEG); CLARITY,URINE CLEAR; COLOR,URINE YELLOW; NITRITE,URINE NEGATIVE (NEG); PROTEIN,URINE NEGATIVE (NEG-TRACE); UROBILINOGEN,URINE 0.2 mg/dL (0.2 mg/dL)
[2019-08-24 02:53] LABS: BASO # 0.1 x10^3/uL (0.0-0.2); BASO % 1 % (0-3); EOS # 0.1 x10^3/uL (0.0-0.7); EOS % 1 % (0-3); HEMATOCRIT 36.7 % (36.0-47.0); HEMOGLOBIN 11.8 g/dL (12.0-15.5); LYMPH # 2.5 x10^3/uL (1.0-4.8); LYMPH % 28 % (24-48); MEAN CORPUSCULAR HEMOGLOBIN 25 pg (25-35); MEAN CORPUSCULAR HGB CONC 32 g/dL (31-37); MEAN CORPUSCULAR VOLUME 79 fL (79-100); MONO # 0.7 x10^3/uL (0.0-1.1); MONO % 9 % (0-9); NEUT # 5.3 x10^3/uL (1.8-7.7); NEUT % 62 % (31-73); PLATELET COUNT 315 x10^3/uL (140-400); RED BLOOD COUNT 4.67 x10^6/uL (3.50-5.40); WHITE BLOOD COUNT 8.6 x10^3/uL (4.0-11.0)
[2019-08-24 02:54] LABS: BACTERIA,URINE MODERATE /HPF (0-FEW); RBC,URINE 20-40 /HPF (0-2); SQUAMOUS EPITHELIAL CELL,UR MOD /LPF
--- NOTE | 2019-08-24 03:04 | RAD ---
Obstetrical ultrasound first trimester, transvaginal imaging HISTORY: Vaginal bleeding. Transvaginal ultrasound was performed. Uterus measured 9.7 x 5.8 x 5.4 cm. There is an intrauterine gestation. Definite subchorionic hemorrhage not identified. Yolk sac and pole were identified. [place]-rump length 1.4 cm with a gestational age of 7 weeks 5 days. Cardiac activity was noted with a rate of 1 35 bpm. There is no free fluid in the pelvis. Right ovary not optimally seen but measuring 3.3 x 1.4 x 1.2 cm without a definite mass. There is flow in the right ovary with color imaging and Doppler. Left ovary was better seen measuring 3.2 x 1.9 x 1.6 cm. There is no left ovarian mass. There is flow in the left ovary with color imaging and Doppler. IMPRESSION: 1. Intrauterine gestation 7 weeks 5 days gestational age by crown-rump length. 2. Heart beat was still evident with a rate of 135 bpm. 3. No subchorionic hemorrhage identified by ultrasound. 4. Normal ovaries. Electronically signed by: Brad Whiting MD (08/24/2019 3:01 AM) [id number]
[2019-08-24 03:05] LABS: CALCIUM 8.5 mg/dL (8.5-10.1); CREATININE 0.8 mg/dL (0.6-1.0); GFR 101.2; POTASSIUM 4.1 mmol/L (3.5-5.1)
[2019-08-24 03:11] LABS: ALBUMIN 2.8 g/dL (3.4-5.0); ALBUMIN/GLOBULIN RATIO 0.8 (1.0-1.7); TOTAL BILIRUBIN 0.3 mg/dL (0.2-1.0); TOTAL PROTEIN 6.1 g/dL (6.4-8.2)
--- NOTE | 2019-08-24 03:42 | PHYS DOC ---
Past Medical History Past Medical History: Diabetes-Type II Additional Past Medical Histor: obesity, abscess Past Surgical History: No Surgical History Smoking Status: Never Smoker Alcohol Use: Rarely Drug Use: None General Adult EDM: Chief Complaint: VAGINAL BLEEDING HPI: HPI: Patient is a 33 year old female presenting to the ED with a chief complaint of vaginal bleeding. Patient states that she is is probably around 7 weeks . Patient states that she has been spotting for the last 2 days but today had vaginal bleeding. Patient denies any abdominal or pelvic tenderness. Patient denies fever, chills, nausea, vomiting, chest pain, shortness of breath. Review of Systems: Review of Systems: Constitutional: Denies fever or chills. [] Eyes: Denies change in visual acuity. [] HENT: Denies nasal congestion or sore throat. [] Respiratory: Denies cough or shortness of breath. [] Cardiovascular: Denies chest pain or edema. [] GI: Denies abdominal pain, nausea, vomiting, bloody stools or diarrhea. [] : Complains of vaginal bleeding Neurologic: Denies headache, focal weakness or sensory changes. [] Heart Score: Risk Factors: Risk Factors: DM, Current or recent (<one month) smoker, HTN, HLP, family history of CAD, obesity. Risk Scores: Score 0 - 3: 2.5% MACE over next 6 weeks - Discharge Home Score 4 - 6: 20.3% MACE over next 6 weeks - Admit for Clinical Observation Score 7 - 10: 72.7% MACE over next 6 weeks - Early Invasive Strategies Allergies: Allergies: Allergies Coded Allergies Type Severity Reaction Last Updated Verified No Known Drug Allergies 09/25/14 No Physical Exam: PE: Constitutional: Well developed, well nourished, no acute distress, non-toxic dino earance. [] HENT: Normocephalic, atraumatic Eyes: EOMI Neck: Normal range of motion, Supple Cardiovascular:Heart rate regular rhythm Lungs & Thorax: Bilateral breath sounds clear to auscultation [] Abdomen: Gravid abdomen. No abdominal tenderness Extremities: No tenderness, ROM intact Neurologic: Alert and oriented X 3 Current Patient Data: Labs: Laboratory Tests Test 08/24/19 01:01 08/24/19 01:30 08/24/19 02:40 POC Urine HCG, Qualitative Hcg positive (Negative) Urine Collection Type Unknown Urine Color Yellow Urine Clarity Clear Urine pH 5.0 (<5.0-8.0) Urine Specific [place] 1.025 (1.000-1.030) Urine Protein Negative mg/dL (NEG-TRACE) Urine Glucose (UA) Negative mg/dL (NEG) Urine Ketones (Stick) Negative mg/dL (NEG) Urine Blood Large (NEG) Urine Nitrite Negative (NEG) Urine Bilirubin Negative (NEG) Urine Urobilinogen Dipstick 0.2 mg/dL (0.2 mg/dL) Urine Leukocyte Esterase Negative (NEG) Urine RBC 20-40 /HPF (0-2) Urine WBC 1-4 /HPF (0-4) Urine Squamous Epithelial Cells Mod /LPF Urine Bacteria Moderate /HPF (0-FEW) Urine Mucus Marked /LPF White Blood Count 8.6 x10^3/uL (4.0-11.0) Red Blood Count 4.67 x10^6/uL (3.50-5.40) Hemoglobin 11.8 g/dL (12.0-15.5) L Hematocrit 36.7 % (36.0-47.0) Mean Corpuscular Volume 79 fL (79-100) Mean Corpuscular Hemoglobin 25 pg (25-35) Mean Corpuscular Hemoglobin Concent 32 g/dL (31-37) Red Cell Distribution Width 15.0 % (11.5-14.5) H Platelet Count 315 x10^3/uL (140-400) Neutrophils (%) (Auto) 62 % (31-73) Lymphocytes (%) (Auto) 28 % (24-48) Monocytes (%) (Auto) 9 % (0-9) Eosinophils (%) (Auto) 1 % (0-3) Basophils (%) (Auto) 1 % (0-3) Neutrophils # (Auto) 5.3 x10^3/uL (1.8-7.7) Lymphocytes # (Auto) 2.5 x10^3/uL (1.0-4.8) Monocytes # (Auto) 0.7 x10^3/uL (0.0-1.1) Eosinophils # (Auto) 0.1 x10^3/uL (0.0-0.7) Basophils # (Auto) 0.1 x10^3/uL (0.0-0.2) Maternal Serum HCG Beta Subunit 99694 mIU/mL (0-5) H Sodium Level 133 mmol/L (136-145) L Potassium Level 4.1 mmol/L (3.5-5.1) Chloride Level 101 mmol/L (98-107) Carbon Dioxide Level 25 mmol/L (21-32) Anion Gap 7 (6-14) Blood Urea Nitrogen 14 mg/dL (7-20) Creatinine 0.8 mg/dL (0.6-1.0) Estimated GFR (Cockcroft-Gault) 101.2 BUN/Creatinine Ratio 18 (6-20) Glucose Level 128 mg/dL (70-99) H Calcium Level 8.5 mg/dL (8.5-10.1) Total Bilirubin 0.3 mg/dL (0.2-1.0) Aspartate Amino Transferase (AST) 13 U/L (15-37) L Alanine Aminotransferase (ALT) 19 U/L (14-59) Alkaline Phosphatase 72 U/L (46-116) Total Protein 6.1 g/dL (6.4-8.2) L Albumin 2.8 g/dL (3.4-5.0) L Albumin/Globulin Ratio 0.8 (1.0-1.7) L Laboratory Tests 08/24/19 02:40 Laboratory Tests 08/24/19 02:40 Vital Signs: Vital Signs Date Time Temp Pulse Resp B/P (MAP) Pulse Ox O2 Delivery O2 Flow Rate FiO2 08/24/19 01:41 98.1 71 20 141/85 (103) 100 Room Air 98.1 EKG: EKG: [] Radiology/Procedures: Radiology/Procedures: [] Impression: US PELVIS IMPRESSION: 1. Intrauterine gestation 7 weeks 5 days gestational age by crown-rump length. 2. Heart beat was still evident with a rate of 135 bpm. 3. No subchorionic hemorrhage identified by ultrasound. 4. Normal ovaries. Course & Med Decision Making: Course & Med Decision Making Pertinent Labs and Imaging studies reviewed. (See chart for details) Ordered ultrasound of the pelvis, labs, UA Ultrasound pelvis shows single IUP of 7 weeks 5 days with a heart tone of 135. Labs are within normal limits. Beta-hCG level is within normal limits. Patient to follow-up with OB as an outpatient. Discussed results and plan of care with patient. Patient is instructed to follow up with PCP in one to 2 days. Appropriate discharge instructions given to patient to return to the ED or to seek immediate medical evaluation. Patient is instructed to return to the ED if symptoms worsen or if any concerns. Haritha Disclaimer: Dragon Disclaimer: This electronic medical record was generated, in whole or in part, using a voice recognition dictation system. Departure Departure Impression: Primary Impression: Threatened miscarriage Additional Impression: Vaginal bleeding affecting early Disposition: HOME, SELF-CARE Condition: STABLE Referrals: Nikky NATARAJAN MD (PCP) Patient Instructions: Threatened Miscarriage, Vaginal Bleeding During Pregn barb, First Trimester Additional Instructions: Discussed results and plan of care with patient. Patient is instructed to follow up with PCP in one to 2 days. Appropriate discharge instructions given to patient to return to the ED or to seek immediate medical evaluation. Patient is instructed to return to the ED if symptoms worsen or if any concerns. Justicifation of Admission Dx: Justifications for Admission: Justification of Admission Dx: BRISA Leyva DO Aug 24, 2019 03:42
== END 2019-08-24 03:51 | disposition home or self-care (01) ==
LOC: ER 00:28
DX: O20.0 Threatened abortion (principal); O99.211 Obesity complicating pregnancy, first trimester; O24.911 Unspecified diabetes mellitus in pregnancy, first trimester; Z3A.01 Less than 8 weeks gestation of pregnancy
CPT/HCPCS: 36415; 76801; 80053; 81001; 81025; 84702; 85025; 86900; 86901; 87086; 99284-25

== ENCOUNTER 2020-01-30 17:20 | Emergency (ER) | payer OTHER ==
[~2020-01-30] VITALS: Ht 165.1 cm; Wt 125.0 kg
[2020-01-30 17:49] VITALS: BP 141/100
[2020-01-30] MEDS: HYDROcodone/APAP 5/325MG 1 TAB TABLET PO ONE (18:35)
--- NOTE | 2020-01-30 18:43 | RAD ---
CT head without contrast: Reason for examination: Barr fell on head. Axial images were obtained through the brain. No contrast was administered. Reconstruction was perfor med in coronal plane. Exposure: One or more of the following individualized dose reduction techniques were utilized for thi s examination: 1. Automated exposure control 2. Adjustment of the mA and/or kV according to patient size 3. Use of iterative reconstruction technique. Ventricular systems are symmetric and not abnormally dilated. No midline shift is seen. There is no e vidence of intracranial hemorrhage, infarct, mass or contusion. No abnormalities of seen at the orbit s. The paranasal sinuses and mastoid air cells are clear. No acute abnormality seen in the skull. IMPRESSION: No acute intracranial abnormality evident. Electronically signed by: Celeste Bejarano MD (01/30/2020 6:41 PM) [facility]LS[facility]
--- NOTE | 2020-01-30 18:56 | PHYS DOC ---
Past Medical History Past Medical History: Diabetes-Type II Additional Past Medical Histor: obesity, abscess (DESHAUN FERNANDEZ TELEPHONE OPERATOR CHIEF) Past Surgical History: No Surgical History (DESHAUN FERNANDEZ TELEPHONE OPERATOR CHIEF) Smoking Status: Never Smoker Alcohol Use: Rarely Drug Use: None (DESHAUN FERNANDEZ APRN) General Adult EDM: Chief Complaint: HEADACHE HPI: HPI: Patient is a 34 year old female who presents with states she was walking up the stairs into a apartment building when another person that lives in the apartment building was moving out and had a box full pants. A skillet that his iron fell out and fell on top of her head. Patient states she did not have syncopal episode but she had to sit down for second. Patient rates her pain a 7 out of 10 and states she is just got a headache. There is no laceration or abrasions. There is no lumps but there is some tenderness to the top of her head. There is no bruising seen. Patient denies vision changes, syncope, dizziness, numbness or tingling, neck pain, back pain, falling, blood thinners. Patient's only past medical history is diabetes. She did not take any pain medication prior to coming. (DESHAUN FERNANDEZ TELEPHONE OPERATOR CHIEF) Review of Systems: Review of Systems: Constitutional: Denies fever or chills. [] Eyes: Denies change in visual acuity. [] HENT: Denies nasal congestion or sore throat. [] Respiratory: Denies cough or shortness of breath. [] Cardiovascular: Denies chest pain or edema. [] GI: Denies abdominal pain, nausea, vomiting, bloody stools or diarrhea. [] : Denies dysuria. [] Musculoskeletal: Denies back pain or joint pain. [] Integument: Denies rash. + Tenderness to the top of her head [] Neurologic: + headache, denies focal weakness or sensory changes. [] Endocrine: Denies polyuria or polydipsia. [] Lymphatic: Denies swollen glands. [] Psychiatric: Denies depression or anxiety. [] (DESHAUN FERNANDEZ APRN) Heart Score: Risk Factors: Risk Factors: DM, Current or recent (<one month) smoker, HTN, HLP, family history of CAD, obesity. Risk Scores: Score 0 - 3: 2.5% MACE over next 6 weeks - Discharge Home Score 4 - 6: 20.3% MACE over next 6 weeks - Admit for Clinical Observation Score 7 - 10: 72.7% MACE over next 6 weeks - Early Invasive Strategies (DESHAUN FERNANDEZ APRN) Current Medications: Current Medications Medications (Trade) Dose Ordered Sig/Genevieve Start Time Stop Time Status Last Admin Dose Admin Acetaminophen/ Hydrocodone Bitart (Lortab 5/325) 1 tab 1X ONCE 01/30/20 18:15 01/30/20 18:16 DC 01/30/20 18:35 1 TAB (DESHAUN FERNANDEZ TELEPHONE OPERATOR CHIEF) Allergies: Allergies: Allergies Coded Allergies Type Severity Reaction Last Updated Verified No Known Drug Allergies 09/25/14 No (DESHAUN FERNANDEZ APRN) Physical Exam: PE: Constitutional: Well developed, well nourished, no acute distress, non-toxic appearance. [] HENT: Normocephalic, atraumatic, bilateral external ears normal, oropharynx moist, no oral exudates, nose normal. Tenderness to the top of the head with a escoto hit her head. [] Eyes: PERRLA, EOMI, conjunctiva normal, no discharge. [] Neck: Normal range of motion, no tenderness, supple, no stridor. [] Cardiovascular:Heart rate regular rhythm, no murmur [] Lungs & Thorax: Bilateral breath sounds clear to auscultation [] Abdomen: Bowel sounds normal, soft, no tenderness, no masses, no pulsatile masses. [] Skin: Warm, dry, no erythema, no rash. [] Back: No tenderness, no CVA tenderness. [] Extremities: No tenderness, no cyanosis, no clubbing, ROM intact, no edema. [] Neurologic: Alert and oriented X 3, normal motor function, normal sensory function, no focal deficits noted. [] Psychologic: Affect normal, judgement normal, mood normal. [] (DESHAUN FERNANDEZ TELEPHONE OPERATOR CHIEF) Current Patient Data: Vital Signs: Vital Signs Date Time Temp Pulse Resp B/P (MAP) Pulse Ox O2 Delivery O2 Flow Rate FiO2 01/30/20 17:49 98.3 72 16 141/100 (114) 99 Room Air 98.3 (DESHAUN FERNANDEZ TELEPHONE OPERATOR CHIEF) EKG: EKG: [] (DESHAUN FERNANDEZ APRN) Radiology/Procedures: Radiology/Procedures: [] Impression: [facility] [address] [place] [address] IMAGING REPORT Signed PATIENT: ROBERT ADAMSON ACCOUNT: [id number] : 1985 LOCATION: ER AGE: 34 SEX: F EXAM STATUS: REG ER ORD. PHYSICIAN: DESHAUN FERNANDEZ APRN REASON: ESCOTO FELL ON HEAD PROCEDURE: CT HEAD WO CONTRAST CT head without contrast: Reason for examination: Escoto fell on head. Axial images were obtained through the brain. No contrast was administered. Reconstruction was performed in coronal plane. Exposure: One or more of the following individualized dose reduction techniques were utilized for this examination: 1. Automated exposure control 2. Adjustment of the mA and/or kV according to patient size 3. Use of iterative reconstruction technique. Ventricular systems are symmetric and not abnormally dilated. No midline shift is seen. There is no evidence of intracranial hemorrhage, infarct, mass or contusion. No abnormalities of seen at the orbits. The paranasal sinuses and mastoid air cells are clear. No acute abnormality seen in the skull. IMPRESSION: No acute intracranial abnormality evident. Electronically signed by: Inez Jacques MD (01/30/2020 6:41 PM) [facility] DICTATED and SIGNED BY: INEZ JACQUES MD DATE: 01/30/20 [id number] (DESHAUN FERNANDEZ APRN) Course & Med Decision Making: Course & Med Decision Making Pertinent Labs and Imaging studies reviewed. (See chart for details) See HPI. She only has some tenderness to the very top of her head where the escoto hit. PERRLA. Ambulatory with a steady gait. Speaks in full complete sentences. Full range of motion of her neck. Skin pink warm and dry. Patient will follow up with her primary care provider if needed. [] (DESHAUN FERNANDEZ APRN) Course & Med Decision Making I have reviewed the TECHNICAL WRITING LEAD/MGR's note and plan of care. I was available for consultation as needed during the patient's visit in the emergency department. I agree with the clinical impression, plan, and disposition. (ALVERTO MAE DO) Haritha Disclaimer: Haritha Disclaimer: This electronic medical record was generated, in whole or in part, using a voice recognition dictation system. (DESHAUN FERNANDEZ APRN) Departure Departure Impression: Primary Impression: Head injury Qualified Codes: S09.90XA - Unspecified injury of head, initial encounter Disposition: 01 DC HOME SELF CARE/HOMELESS Condition: STABLE Referrals: Nikky NATARAJAN MD (PCP) Patient Instructions: Head Injury, Adult Additional Instructions: Follow-up with primary care provider if needed. Take ibuprofen for your pain. Use ice for tenderness to the top of your head. DESHAUN FERNANDEZ APRN Jan 30, 2020 18:56 ALVERTO MAE DO Jan 31, 2020 02:44
== END 2020-01-30 19:03 | disposition home or self-care (01) ==
LOC: ER 17:20
DX: S09.8XXA Other specified injuries of head, initial encounter (principal); E11.9 Type 2 diabetes mellitus without complications; E66.8 Other obesity; Z68.42 Body mass index [BMI] 45.0-49.9, adult; W20.8XXA Other cause of strike by thrown, projected or falling object, initial encounter; Y93.89 Activity, other specified; Y92.89 Other specified places as the place of occurrence of the external cause; Y99.8 Other external cause status
CPT/HCPCS: 70450; 99284

== ENCOUNTER 2020-04-01 16:11 | Emergency (ER) | payer OTHER ==
[~2020-04-01] VITALS: Ht 165.1 cm; Wt 127.2 kg
[2020-04-01 16:55] LABS: BILIRUBIN,URINE NEGATIVE (NEG); CLARITY,URINE CLEAR; COLOR,URINE YELLOW; NITRITE,URINE NEGATIVE (NEG); PROTEIN,URINE NEGATIVE (NEG-TRACE); UROBILINOGEN,URINE 0.2 mg/dL (0.2 mg/dL)
[2020-04-01 17:17] LABS: U PREG PATIENT NEGATIVE (NEG)
[2020-04-01 17:41] LABS: RBC,URINE TNTC /HPF (0-2)
[2020-04-01 17:43] LABS: BACTERIA,URINE 0 /HPF (0-FEW)
--- NOTE | 2020-04-01 17:43 | PHYS DOC ---
Past Medical History Past Medical History: Diabetes-Type II Additional Past Medical Histor: obesity, abscess Past Surgical History: No Surgical History Smoking Status: Never Smoker Alcohol Use: Rarely Drug Use: None General Adult EDM: Chief Complaint: VAGINAL BLEEDING HPI: HPI: Patient is a 34 year old female 2 para 0, 1 miscarriage presenting to the ED today stating she is and having vaginal bleeding in . Last menstrual cycle was February 15, 2020. Patient states she did 2 home tests a week ago which were positive. She went to the PCPs office on Monday last week and they did a test which was negative. She came to the ED today stating she started bleeding today and is cramping. Review of Systems: Review of Systems: Constitutional: Denies fever or chills. [] GI: Reports vaginal bleeding and cramping. Denies nausea, vomiting, bloody stools or diarrhea. [] : Denies dysuria. [] Musculoskeletal: Denies back pain or joint pain. [] Integument: Denies rash. [] Neurologic: Denies headache, focal weakness or sensory changes. [] Psychiatric: Denies depression or anxiety. [] Heart Score: Risk Factors: Risk Factors: DM, Current or recent (<one month) smoker, HTN, HLP, family history of CAD, obesity. Risk Scores: Score 0 - 3: 2.5% MACE over next 6 weeks - Discharge Home Score 4 - 6: 20.3% MACE over next 6 weeks - Admit for Clinical Observation Score 7 - 10: 72.7% MACE over next 6 weeks - Early Invasive Strategies Allergies: Allergies: Allergies Coded Allergies Type Severity Reaction Last Updated Verified No Known Drug Allergies 09/25/14 No Physical Exam: PE: Constitutional: Well developed, well nourished, no acute distress, non-toxic appearance. [] Abdomen: Bowel sounds normal, soft, no tenderness, no masses, no pulsatile masses. [] Pelvic exam External pelvic is normal, cervix is visualized, closed, no CMT, small amount of bright red blood in the vaginal vault. Skin: Warm, dry, no erythema, no rash. [] Back: No tenderness, no CVA tenderness. [] Extremities: No tenderness, no cyanosis, no clubbing, ROM intact, no edema. [] Neurologic: Alert and oriented X 3, normal motor function, normal sensory function, no focal deficits noted. [] Psychologic: Affect normal, judgement normal, mood normal. [] Current Patient Data: Labs: Laboratory Tests Test 04/01/20 16:30 Urine Test Negative (NEG) Vital Signs: Vital Signs Date Time Temp Pulse Resp B/P (MAP) Pulse Ox O2 Delivery O2 Flow Rate FiO2 04/01/20 16:27 97.8 67 20 170/83 (112) 98 Room Air 97.8 EKG: EKG: [] Radiology/Procedures: Radiology/Procedures: [] Course & Med Decision Making: Course & Med Decision Making Pertinent Labs and Imaging studies reviewed. (See chart for details) This is a 34-year-old female patient presented to the ED today complaining of vaginal bleeding in . Patient reports having 2+ tests a week ago, she states she was seen by the PCP a week ago after her home test were positive, the doctor's office test was negative. Negative urine hCG here, UA is negative. Patient was discharged home. Follow-up with her PCP in 1 to 2 weeks. Haritha Disclaimer: Haritha Disclaimer: This electronic medical record was generated, in whole or in part, using a voice recognition dictation system. Departure Departure Impression: Primary Impression: Dysfunctional uterine bleeding Disposition: 01 DC HOME SELF CARE/HOMELESS Condition: STABLE Referrals: UNKNOWN PCP NAME (PCP) Follow-up with your primary care doctor in 1 to 2 weeks Patient Instructions: Uterine Bleeding, Dysfunctional Additional Instructions: You were evaluated in the emergency room, your urine test is negative. Please follow-up with your primary care doctor. Come back to the ED at any point symptoms worsen. DIRK FERNANDEZ APRN Apr 01, 2020 17:43
[2020-04-01 18:00] VITALS: BP 143/74
== END 2020-04-01 18:06 | disposition home or self-care (01) ==
LOC: ER 16:11
DX: N93.8 Other specified abnormal uterine and vaginal bleeding (principal); E11.9 Type 2 diabetes mellitus without complications
CPT/HCPCS: 81001; 81025; 99283; 99284

== ENCOUNTER 2020-08-01 17:54 | Emergency (ER) | payer OTHER ==
[~2020-08-01] VITALS: Ht 165.1 cm; Wt 118.1 kg
[2020-08-01 20:14] LABS: COLOR,URINE RED
[2020-08-01 20:17] LABS: U PREG PATIENT NEGATIVE (NEG)
[2020-08-01 20:20] LABS: CLARITY,URINE BLOODY
[2020-08-01 20:22] LABS: BACTERIA,URINE 0 /HPF (0-FEW); RBC,URINE TNTC /HPF (0-2)
[2020-08-01 20:44] LABS: BASO % 1 % (0-3); EOS # 0.1 x10^3/uL (0.0-0.7); EOS % 1 % (0-3); HEMATOCRIT 39.9 % (36.0-47.0); LYMPH # 2.5 x10^3/uL (1.0-4.8); LYMPH % 38 % (24-48); MEAN CORPUSCULAR HEMOGLOBIN 26 pg (25-35); MEAN CORPUSCULAR HGB CONC 33 g/dL (31-37); MEAN CORPUSCULAR VOLUME 79 fL (79-100); MONO # 0.5 x10^3/uL (0.0-1.1); MONO % 7 % (0-9); NEUT # 3.5 x10^3/uL (1.8-7.7); NEUT % 53 % (31-73); PLATELET COUNT 319 x10^3/uL (140-400); RED BLOOD COUNT 5.05 x10^6/uL (3.50-5.40); RED CELL DISTRIBUTION WIDTH 14.3 % (11.5-14.5); WHITE BLOOD COUNT 6.6 x10^3/uL (4.0-11.0)
[2020-08-01 20:53] LABS: CALCIUM 8.8 mg/dL (8.5-10.1); GFR 77.7; POTASSIUM 4.3 mmol/L (3.5-5.1)
--- NOTE | 2020-08-01 20:58 | PHYS DOC ---
Past Medical History Past Medical History: Diabetes-Type II Additional Past Medical Histor: obesity, abscess Past Surgical History: No Surgical History Smoking Status: Former Smoker Alcohol Use: None Drug Use: None General Adult EDM: Chief Complaint: VAGINAL BLEEDING HPI: HPI: Patient is a 34 year old female with a history of diabetes type 2, 3 para 0 currently stating she is 5 weeks presenting today complaining of vaginal bleeding in that began today. Last menstrual cycle was June 13, 2020. Also complaining of abdominal cramping. She states she did 2 tests at home that were +2 weeks ago Review of Systems: Review of Systems: Constitutional: Denies fever or chills. [] Eyes: Denies change in visual acuity. [] HENT: Denies nasal congestion or sore throat. [] Respiratory: Denies cough or shortness of breath. [] Cardiovascular: Denies chest pain or edema. [] GI: Reports vaginal bleeding in and abdominal cramping, denies nausea, vomiting, bloody stools or diarrhea. [] : Denies dysuria. [] Musculoskeletal: Denies back pain or joint pain. [] Integument: Denies rash. [] Neurologic: Denies headache, focal weakness or sensory changes. [] Psychiatric: Denies depression or anxiety. [] Heart Score: C/O Chest Pain: N/A Risk Factors: Risk Factors: DM, Current or recent (<one month) smoker, HTN, HLP, family history of CAD, obesity. Risk Scores: Score 0 - 3: 2.5% MACE over next 6 weeks - Discharge Home Score 4 - 6: 20.3% MACE over next 6 weeks - Admit for Clinical Observation Score 7 - 10: 72.7% MACE over next 6 weeks - Early Invasive Strategies Allergies: Allergies: Allergies Coded Allergies Type Severity Reaction Last Updated Verified No Known Drug Allergies 09/25/14 No Physical Exam: PE: Constitutional: Well developed, well nourished, no acute distress, non-toxic appearance. [] HENT: Normocephalic, atraumatic, bilateral external ears normal, oropharynx moist, no oral exudates, nose normal. [] Eyes: PERRLA, EOMI, conjunctiva normal, no discharge. [] Neck: Normal range of motion, no tenderness, supple, no stridor. [] Cardiovascular:Heart rate regular rhythm, no murmur [] Lungs & Thorax: Bilateral breath sounds clear to auscultation [] Abdomen: Bowel sounds normal, soft, no tenderness, no masses, no pulsatile masses. [] Pelvic exam External pelvic with trace amount of bright red blood, cervix is visualized, small amount of bright red blood in the vaginal vault, no pooling, no clots, no adnexal tenderness, no CMT Skin: Warm, dry, no erythema, no rash. [] Back: No tenderness, no CVA tenderness. [] Extremities: No tenderness, no cyanosis, no clubbing, ROM intact, no edema. [] Neurologic: Alert and oriented X 3, normal motor function, normal sensory function, no focal deficits noted. [] Psychologic: Affect normal, judgement normal, mood normal. [] Current Patient Data: Labs: Laboratory Tests Test 08/01/20 20:03 08/01/20 20:30 Urine Collection Type Unknown Urine Color Red Urine Clarity Bloody Urine pH (<5.0-8.0) Urine Specific [place] (1.000-1.030) Urine Protein mg/dL (NEG-TRACE) Urine Glucose (UA) mg/dL (NEG) Urine Ketones (Stick) mg/dL (NEG) Urine Blood (NEG) Urine Nitrite (NEG) Urine Bilirubin (NEG) Urine Urobilinogen Dipstick mg/dL (0.2 mg/dL) Urine Leukocyte Esterase (NEG) Urine RBC Tntc /HPF (0-2) Urine WBC 1-4 /HPF (0-4) Urine Squamous Epithelial Cells Few /LPF Urine Bacteria 0 /HPF (0-FEW) Urine Mucus Slight /LPF Urine Test Negative (NEG) White Blood Count 6.6 x10^3/uL (4.0-11.0) Red Blood Count 5.05 x10^6/uL (3.50-5.40) Hemoglobin 13.0 g/dL (12.0-15.5) Hematocrit 39.9 % (36.0-47.0) Mean Corpuscular Volume 79 fL (79-100) Mean Corpuscular Hemoglobin 26 pg (25-35) Mean Corpuscular Hemoglobin Concent 33 g/dL (31-37) Red Cell Distribution Width 14.3 % (11.5-14.5) Platelet Count 319 x10^3/uL (140-400) Neutrophils (%) (Auto) 53 % (31-73) Lymphocytes (%) (Auto) 38 % (24-48) Monocytes (%) (Auto) 7 % (0-9) Eosinophils (%) (Auto) 1 % (0-3) Basophils (%) (Auto) 1 % (0-3) Neutrophils # (Auto) 3.5 x10^3/uL (1.8-7.7) Lymphocytes # (Auto) 2.5 x10^3/uL (1.0-4.8) Monocytes # (Auto) 0.5 x10^3/uL (0.0-1.1) Eosinophils # (Auto) 0.1 x10^3/uL (0.0-0.7) Basophils # (Auto) 0.0 x10^3/uL (0.0-0.2) Laboratory Tests 08/01/20 20:30 Microbiology 08/01/20 Wet Prep - Final, Complete Vital Signs: Vital Signs Date Time Temp Pulse Resp B/P (MAP) Pulse Ox O2 Delivery O2 Flow Rate FiO2 08/01/20 17:56 98.8 90 18 155/100 (118) 99 Room Air 98.8 EKG: EKG: [] Radiology/Procedures: Radiology/Procedures: [] Course & Med Decision Making: Course & Med Decision Making Pertinent Labs and Imaging studies reviewed. (See chart for details) This is a 34-year-old female patient 3 para 0 presenting today with vaginal bleeding in that began today. Negative urine hCG. Beta hcg<1, CBC with no acute findings. CMP with glucose of 334, history of diabetes type 2. UA not readable due to blood. Blood group O+. Discharge to home. Follow-up with PCP for this hyperglycemia and [employer] Haritha Disclaimer: Haritha Disclaimer: This electronic medical record was generated, in whole or in part, using a voice recognition dictation system. Departure Departure Impression: Primary Impression: Dysfunctional uterine bleeding Additional Impression: Hyperglycemia due to type 2 diabetes mellitus Qualified Codes: E11.65 - Type 2 diabetes mellitus with hyperglycemia Disposition: HOME / SELF CARE / HOMELESS Condition: STABLE Referrals: UNKNOWN PCP NAME (PCP) Follow-up with your [employer] as well as primary care doctor CHARU ROSA Jr, MD follow up in one week Patient Instructions: Hyperglycemia, Uterine Bleeding, Dysfunctional, [id number] Additional Instructions: You were evaluated for in the emergency room for vaginal bleeding, your urine test as well as a blood test are negative. Please follow-up with your primary care doctor as well as [employer]. DIRK FERNANDEZ [employer]AD [employer] Aug 01, 2020 20:58
[2020-08-01 20:59] LABS: ALBUMIN 3.3 g/dL (3.4-5.0); ALBUMIN/GLOBULIN RATIO 0.9 (1.0-1.7); TOTAL BILIRUBIN 0.2 mg/dL (0.2-1.0); TOTAL PROTEIN 6.9 g/dL (6.4-8.2)
[2020-08-01 21:50] VITALS: BP 145/98
[2020-08-03 13:15] LABS: GC PROBE Negative (Negative)
== END 2020-08-01 21:51 | disposition home or self-care (01) ==
LOC: ER 17:54
DX: O46.91 Antepartum hemorrhage, unspecified, first trimester (principal); Z3A.01 Less than 8 weeks gestation of pregnancy; E11.65 Type 2 diabetes mellitus with hyperglycemia; Z87.891 Personal history of nicotine dependence
CPT/HCPCS: 80053; 81001; 81025; 84702; 85025; 87491; 87591; 99284; Q0111